=== PATIENT | female | born 1960 | race African-American/Black ===

== ENCOUNTER 2022-06-15 20:29 | Emergency (ER) | payer MEDICARE, OTHER ==
[~2022-06-15] VITALS: Ht 144.8 cm; Wt 90.0 kg
[2022-06-15] MEDS ORDERED: FERR-82 PO (20:44)
[2022-06-15] MEDS ORDERED: ARIP5TAB37 PO (20:46)
[2022-06-15] MEDS ORDERED: METO50 PO (20:46)
[2022-06-15 22:08] LABS: BASOPHILS % (AUTO) 0.6 % (0.0-2.0); EOSINOPHILS % (AUTO) 0.5 % (1.0-6.0); HEMATOCRIT 47.3 % (36-46); HEMOGLOBIN 15.6 g/dL (12.0-16.0); LYMPHOCYTES # (AUTO) 1.6 K/uL (1.0-4.8); LYMPHOCYTES % (AUTO) 18.7 % (22.0-44.0); MEAN CORPUSCULAR HEMOGLOBIN 29.2 pg (26.0-34.0); MEAN CORPUSCULAR HGB CONC 32.9 G/dL (31.0-37.0); MEAN CORPUSCULAR VOLUME 89 fL (80-100); MONOCYTES % (AUTO) 12.1 % (2.0-9.0); NEUTROPHILS # (AUTO) 5.9 K/uL (1.8-7.7); NEUTROPHILS % (AUTO) 68.1 % (40.0-70.0); PLATELET COUNT (AUTO) 276 K/uL (150-450); RED BLOOD CELL COUNT(AUTO) 5.35 MIL/uL (4.00-5.20); RED CELL DISTRIBUTION WIDTH 13.8 % (11.5-14.5)
[2022-06-15 22:15] LABS: ANION GAP 18 mmol/L (8-16); CALCIUM, TOTAL 9.8 mg/dL (8.8-10.5); CARBON DIOXIDE 21 mmol/L (22-29); CHLORIDE 100 mmol/L (98-107); CREATININE 1.04 mg/dL (0.60-1.30); GLOMERULAR FILTR. RATE CALC > 60 mL/min (>60); GLUCOSE,RANDOM 115 mg/dL (70-110); POTASSIUM 3.6 mmol/L (3.5-5.1); SODIUM SERUM 139 mmol/L (136-145); UREA NITROGEN, BLOOD 19 mg/dL (7-18)
[2022-06-15 22:20] LABS: ALANINE AMINOTRANSFERASE 22 U/L (12-78); ALBUMIN 3.8 g/dL (3.4-5.0); ALKALINE PHOSPHATASE 181 U/L (46-116); ASPARTATE AMINOTRANSFERASE 24 U/L (15-37); TOTAL PROTEIN, SERUM 8.8 g/dL (6.4-8.2)
[2022-06-15] MEDS ORDERED: MINERAL OIL/PETROLATUM,WHITE PF 3.5 GM OPHTHALMIC OINTMENT OS ONE (23:00)
[2022-06-15] MEDS ORDERED: CEPH-558 PO (23:04)
[2022-06-15] MEDS ORDERED: VALA100026 PO (23:05)
[2022-06-15 23:24] VITALS: BP 139/72
== END 2022-06-15 23:26 | disposition home or self-care (01) ==
LOC: EMS 22:57
DX: B02.9 Zoster without complications (principal); G51.0 Bell's palsy; E78.00 Pure hypercholesterolemia, unspecified; I10 Essential (primary) hypertension; Z86.79 Personal history of other diseases of the circulatory system
CPT/HCPCS: 70450; 80053; 85025; 99284

== ENCOUNTER 2022-06-25 09:37 | Emergency (ER) | payer MEDICARE, OTHER ==
[~2022-06-25] VITALS: Ht 139.7 cm; Wt 115.9 kg
[~2022-06-25 09:37] MED LIST: ARIP5TAB37 PO; CEPH-558 PO; FERR-82 PO; METO50 PO; VALA100026 PO
[2022-06-25] MEDS ORDERED: IBUP-2070 PO (09:47)
[2022-06-25] MEDS ORDERED: DIPH25CA85 PO (09:47)
[2022-06-25] MEDS ORDERED: ACET-784 PO (09:47)
[2022-06-25 10:31] VITALS: BP 157/69
== END 2022-06-25 11:15 | disposition home or self-care (01) ==
LOC: EMS 09:39
DX: B02.9 Zoster without complications (principal); I10 Essential (primary) hypertension; E78.00 Pure hypercholesterolemia, unspecified; Z79.899 Other long term (current) drug therapy
CPT/HCPCS: 99281; Z7502